=== PATIENT | female | born 1960 | race Two or more races ===

== ENCOUNTER 2021-12-03 07:20 | Emergency (ER) | payer OTHER, SELFPAY ==
[2021-12-03] VITALS (9 sets, daily range): BP systolic 121–187; BP diastolic 72–99; PULSE 50–55; RESP 16–20; TEMP 36.4–36.6; O2SAT 95–100; BMI 25.7
--- NOTE | ~2021-12-03 | CT_ITS ---
EXAMINATION: CT ABDOMEN AND PELVIS WITHOUT CONTRAST CLINICAL INFORMATION: Flank pain COMPARISON: None TECHNIQUE: Multidetector volumetric imaging was performed from the superior aspect of the liver through the pubic symphysis. Sagittal and coronal reformatted images were obtained on the technologist's workstation. This CT examination was performed using dose optimization techniques as appropriate, variously including the following: *Automated exposure control *Adjustment of mA and/or kV according to patient size (this includes techniques or standardized protocols for targeted exams where dose is matched to indication/reason for exam; i.e. extremities or head) *Use of iterative reconstruction technique DLP: 486 mGy-cm FINDINGS: LUNG BASES: Some change at the right medial lung base morphologically system with atelectasis. Small underlying nodularity cannot be excluded. LIVER, GALLBLADDER, AND BILIARY TREE: Small low-attenuation structure in the right lobe on image 13 may be incidental. Cannot be adequately characterize due to its small size. The gallbladder is unremarkable with no evidence of radiopaque gallstones, gallbladder wall thickening, or obvious pericholecystic inflammatory changes. PANCREAS: Unremarkable. SPLEEN: Unremarkable. ADRENAL GLANDS: The left adrenal gland is obscured. The right adrenal is within normal limits. KIDNEYS AND URETERS: The abnormal left kidney. Mixed attenuation is believed to surround the kidney with areas of increased attenuation. Findings consistent with hemorrhage on this noncontrast study. Lung the inferior aspect of this region fatty attenuation is seen. Therefore this could well represent hemorrhage within angiomyolipomas associated with the kidney. Hemorrhage of other etiology would need to be considered. BLADDER: Unremarkable. GASTROINTESTINAL TRACT: The bowel pattern is felt to be overall nonobstructing. There is some mass effect on the bowel by the enlarged left renal fossa abnormality but no obstruction. ABDOMINAL WALL: No significant hernia is appreciated. LYMPH NODES: No bulky adenopathy though the periaortic region associated with the left kidney is obscured by soft tissue stranding VASCULAR: Mild atherosclerotic changes. PELVIC VISCERA: There is a fatty lesion in the deep pelvis. Findings consistent with a teratoma. Peripheral calcification is associated with interspersed soft tissue within the fat. This lesion measures 6.5 x 6.9 x 5.9 cm OSSEOUS STRUCTURES: Lucent lesion of bone at L5 and L2. Etiology indeterminate.. This may be a hemangioma at L5 but that cannot be said of the lucency at L2. Given the findings in the renal fossae would recommend bone scan or MRI. CT/CT abdomen pelvis wo con IMPRESSION: This exam is abnormal. Recommend immediate surgical consultation. There is expansion of the left renal fossa by mixed attenuation. Findings consistent with hemorrhage. A large part of this probable hemorrhage surrounds the left kidney having mass effect on the kidney. Along the inferior aspect there is a more bulbous appearance with fatty attenuation and therefore etiology of hemorrhage could be from angiomyolipoma of the left kidney. Of course other lesion or abnormality causing the hemorrhage would be in the differential. 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 2 bony lesions in the lumbar spine. These may well represent benign etiology but given the findings in the renal fossa MR would be recommended This critical result was discussed with Symone Veronica at 9:31 AM on 12/03/2021 and it was ascertained that the content and urgency of the report was understood at the time of direct communication. Fleischner guidelines were followed.
--- NOTE | 2021-12-03 07:42 | ED_ITS ---
HPI - Abdominal Pain General Chief Complaint: Abdominal Pain Stated Complaint: ABD PAIN Time Seen by Provider: 12/03/21 07:33 Source: patient Mode of arrival: EMS Limitations: no limitations History of Present Illness MD elicited complaint: abdominal pain Pertinent past history: none Onset (ago): hour(s) (1) Pain Consistency: constant Location: LLQ and L flank Severity: severe Quality: stabbing Radiation: none Migration to: no migration Exacerbating factors: nothing Relieving factors: nothing Associated symptoms: nausea and vomiting Related Data Allergies Allergy/AdvReac Type Severity Reaction Status Date / Time No Known Allergies Allergy Verified 12/03/21 07:34 Review of Systems Review of Systems Constitutional : No Weight loss, No Fever, No Chills ENT/Mouth : No sore throat, No Rhinorrhea Eyes: No Swelling, No Redness Cardiovascular : No Chest Pain, No SOB, NoEdema Respiratory : No Cough, No Sputum, No Wheezing Gastrointestinal : Positive Nausea, Positive Vomiting, no Diarrhea, positive abdominal Pain, No Hematochezia, No Melena Genitourinary : No Dysuria, No Urinary Frequency, No Hematuria, No Urgency Musculoskeletal : No joint pain, No Myalgias, No Joint Swelling Skin : No Skin Lesions, No rash Neuro : No Weakness, No Numbness, No Dizziness, No Headache Psych : No Anxiety/Panic, No Depression Heme/Lymph: No Bruising, No Lymphadenopathy Endocrine : No Polyuria, No Polydipsia All other systems reviewed and are negative. [facility] Past Medical History Attestation statement: The following information was validated with the patient. Medical History (Updated 12/03/21 @ 09:44 by Awa Veronica DO) No pertinent past medical history Social History Social History (Updated 12/03/21 @ 07:46 by Awa Veronica DO) Patient Tobacco Use Status: Never used Tobacco Advance Directives: No Advance Directives Information Provided: No Physical Exam ED Vital Signs: Vital Signs - 24 hr 12/03/21 07:28 12/03/21 08:59 12/03/21 10:02 Temperature 97.7 F Pulse Rate 52 50 50 Respiratory Rate 18 18 16 Blood Pressure 187/99 H 121/81 148/83 H Pulse Oximetry 99 98 95 12/03/21 10:20 12/03/21 10:55 12/03/21 11:35 Temperature 97.6 F 97.8 F Pulse Rate 50 50 Respiratory Rate 20 18 Blood Pressure 143/87 H 132/72 Pulse Oximetry 97 12/03/21 11:50 12/03/21 13:40 Temperature 97.9 F 97.7 F Pulse Rate 50 50 Respiratory Rate 19 19 Blood Pressure 135/76 138/77 Pulse Oximetry 100 BMI result Body Mass Index 25.7 Appearance: Alert. Oriented X3. anxious in pain mild acute distress. Eyes: Pupils equal, round and reactive to light. ENT: Pharynx normal. Neck: Normal inspection. Neck supple. CVS: Normal heart rate and rhythm. Pulses normal. Respiratory: No respiratory distress. Breath sounds normal. Abdomen: Soft and mild LLQ ttp no rebound or guarding Skin: Skin warm and dry. pale skin color. Normal skin turgor. Extremities: No lower extremity edema. No calf ttp Neuro: Oriented X 3. No motor deficit. No sensory deficit. Course Course Course Narrative: call from radiology 930AM - big bleed L renal fossa per renal hemorrhage, inferior bulba and fatty attenuation ? 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 Menendez recommends transfusing now given size of bleed, watching HD instability and then involving IR ( our IR does not embolize here confirmed with Dr. Garcia from IR) will start calling for transfer as we do not have IR available for embolization [facility] transfer line 1005am for IR pending call back Dr. Schumacher from transfer line at [facility] 1057am aware - will discuss with IR if they can accommodate patient accepted to [facility] by Dr. Schumacher MDM - Abdominal Pain MDM Narrative Medical decision making narrative: 61 yo female with no sig PMH denies prior surgery here with c/o of abrupt onset LLQ and L flank pain 1 hour ago with nausea and vomiting - at this time will need labs, UA, CT scan for renal colic/diverticulitis. IVF and IV morphine/toradol for pain. Dispo per results and findings. Lab Data Result diagrams: 12/03/21 07:39 12/03/21 07:39 Labs: Lab Results 12/03/21 12/03/21 12/03/21 Range/Units 07:39 07:39 07:39 WBC 6.1 (4.8-10.8) X10*3/uL RBC 4.75 (4.20-5.50) X10*6/uL Hgb 12.6 (12.0-16.0) g/dl Hct 40.7 (37.0-47.0) % MCV 85.7 (80.0-98.0) fL MCH 26.5 L (27.0-33.0) pg MCHC 31.0 (31.0-35.0) g/dl RDW 13.0 (11.0-16.0) % Plt Count 242 (160-400) X10*3/uL MPV 9.2 L (9.4-12.3) fL Immature Gran % (Auto) 0.3 (0.0-0.4) % Neut % (Auto) 67.9 (45-73) % Lymph % (Auto) 23.5 (20-40) % [place] % (Auto) 3.8 (2-11) % Eos % (Auto) 3.4 (0-4) % Baso % (Auto) 1.1 (0-2) % Lymph # (Auto) 1.4 (1.2-4.9) X10*3/uL [place] # (Auto) 0.2 (0.1-1.2) X10*3/uL Eos # (Auto) 0.2 (0.0-0.4) X10*3/uL Baso # (Auto) 0.1 (0.0-0.2) X10*3/uL Abs Immat Gran (auto) 0.02 (0.00-0.03) X10*3/uL Absolute Neuts (auto) 4.1 (2.0-8.3) x10*3/uL Absolute Nucleated RBC 0.000 (0.0-0.012) X10*3/uL Nucleated RBC % (auto) 0.0 (0.0-0.2) /100WBC PT (9.9-13.0) SEC INR (0.9-1.1) APTT (24.1-38.0) SEC Sodium 139 (135-145) mmol/L Potassium 3.8 (3.3-5.1) mmol/L Chloride 105 (96-108) mmol/L Carbon Dioxide 21 L (22-29) mmol/L Anion Gap 17 (12-20) BUN 16 (9-16) mg/dL Creatinine 0.85 (0.5-1.4) mg/dL Estim Creat Clear Calc 67.5 Estimated GFR > 60 Random Glucose 146 H (60-115) mg/dL Lactic Acid (0.5-2.0) mmol/L Calcium 9.6 (8.4-10.2) mg/dL Magnesium 2.1 (1.6-2.6) mg/dL Total Bilirubin 1.2 H (0.0-1.0) mg/dL Direct Bilirubin 0.3 (0.0-0.5) mg/dL AST 38 H (5-31) U/L ALT 17 (0-31) U/L Alkaline Phosphatase 96 (39-117) U/L Total Protein 7.9 (6.5-8.0) g/dL Albumin 4.4 (3.5-5.0) g/dL Lipase 101 H (8-78) U/L Urine Color Urine Appearance Urine pH (5.0-8.0) Ur Specific [place] (1.005-1.025) Urine Protein (NEG-TRACE) MG/DL Urine Glucose (UA) (NEG) MG/DL Urine Ketones (NEG) MG/DL Urine Blood (NEG) Urine Nitrite (NEG) Ur Leukocyte Esterase (NEG) Urine RBC (0) /HPF Urine WBC (0-4) /HPF Ur Squamous Epith Cells /LPF Amorphous Sediment /LPF Urine Bacteria /LPF COVID-19 (BATOOL) Negative (Negative) COVID-19 Clin Com See Note Blood Type Antibody Screen Crossmatch 12/03/21 12/03/21 12/03/21 Range/Units 07:59 09:19 10:16 WBC (4.8-10.8) X10*3/uL RBC (4.20-5.50) X10*6/uL Hgb (12.0-16.0) g/dl Hct (37.0-47.0) % MCV (80.0-98.0) fL MCH (27.0-33.0) pg MCHC (31.0-35.0) g/dl RDW (11.0-16.0) % Plt Count (160-400) X10*3/uL MPV (9.4-12.3) fL Immature Gran % (Auto) (0.0-0.4) % Neut % (Auto) (45-73) % Lymph % (Auto) (20-40) % [place] % (Auto) (2-11) % Eos % (Auto) (0-4) % Baso % (Auto) (0-2) % Lymph # (Auto) (1.2-4.9) X10*3/uL [place] # (Auto) (0.1-1.2) X10*3/uL Eos # (Auto) (0.0-0.4) X10*3/uL Baso # (Auto) (0.0-0.2) X10*3/uL Abs Immat Gran (auto) (0.00-0.03) X10*3/uL Absolute Neuts (auto) (2.0-8.3) x10*3/uL Absolute Nucleated RBC (0.0-0.012) X10*3/uL Nucleated RBC % (auto) (0.0-0.2) /100WBC PT (9.9-13.0) SEC INR (0.9-1.1) APTT (24.1-38.0) SEC Sodium (135-145) mmol/L Potassium (3.3-5.1) mmol/L Chloride (96-108) mmol/L Carbon Dioxide (22-29) mmol/L Anion Gap (12-20) BUN (9-16) mg/dL Creatinine (0.5-1.4) mg/dL Estim Creat Clear Calc Estimated GFR Random Glucose (60-115) mg/dL Lactic Acid 1.1 (0.5-2.0) mmol/L Calcium (8.4-10.2) mg/dL Magnesium (1.6-2.6) mg/dL Total Bilirubin (0.0-1.0) mg/dL Direct Bilirubin (0.0-0.5) mg/dL AST (5-31) U/L ALT (0-31) U/L Alkaline Phosphatase (39-117) U/L Total Protein (6.5-8.0) g/dL Albumin (3.5-5.0) g/dL Lipase (8-78) U/L Urine Color YELLOW Urine Appearance HAZY Urine pH 6.5 (5.0-8.0) Ur Specific [place] 1.020 (1.005-1.025) Urine Protein 1+ H (NEG-TRACE) MG/DL Urine Glucose (UA) NEG (NEG) MG/DL Urine Ketones NEG (NEG) MG/DL Urine Blood 3+ H (NEG) Urine Nitrite NEG (NEG) Ur Leukocyte Esterase TRACE H (NEG) Urine RBC 15-29 H (0) /HPF Urine WBC 1-4 (0-4) /HPF Ur Squamous Epith Cells 1+ /LPF Amorphous Sediment 1+ /LPF Urine Bacteria 1+ /LPF COVID-19 (BATOOL) (Negative) COVID-19 Clin Com Blood Type B Positive Antibody Screen NEGATIVE Crossmatch See Detail 12/03/21 Range/Units 10:16 WBC (4.8-10.8) X10*3/uL RBC (4.20-5.50) X10*6/uL Hgb (12.0-16.0) g/dl Hct (37.0-47.0) % MCV (80.0-98.0) fL MCH (27.0-33.0) pg MCHC (31.0-35.0) g/dl RDW (11.0-16.0) % Plt Count (160-400) X10*3/uL MPV (9.4-12.3) fL Immature Gran % (Auto) (0.0-0.4) % Neut % (Auto) (45-73) % Lymph % (Auto) (20-40) % [place] % (Auto) (2-11) % Eos % (Auto) (0-4) % Baso % (Auto) (0-2) % Lymph # (Auto) (1.2-4.9) X10*3/uL [place] # (Auto) (0.1-1.2) X10*3/uL Eos # (Auto) (0.0-0.4) X10*3/uL Baso # (Auto) (0.0-0.2) X10*3/uL Abs Immat Gran (auto) (0.00-0.03) X10*3/uL Absolute Neuts (auto) (2.0-8.3) x10*3/uL Absolute Nucleated RBC (0.0-0.012) X10*3/uL Nucleated RBC % (auto) (0.0-0.2) /100WBC PT 10.9 (9.9-13.0) SEC INR 1.0 (0.9-1.1) APTT 31.3 (24.1-38.0) SEC Sodium (135-145) mmol/L Potassium (3.3-5.1) mmol/L Chloride (96-108) mmol/L Carbon Dioxide (22-29) mmol/L Anion Gap (12-20) BUN (9-16) mg/dL Creatinine (0.5-1.4) mg/dL Estim Creat Clear Calc Estimated GFR Random Glucose (60-115) mg/dL Lactic Acid (0.5-2.0) mmol/L Calcium (8.4-10.2) mg/dL Magnesium (1.6-2.6) mg/dL Total Bilirubin (0.0-1.0) mg/dL Direct Bilirubin (0.0-0.5) mg/dL AST (5-31) U/L ALT (0-31) U/L Alkaline Phosphatase (39-117) U/L Total Protein (6.5-8.0) g/dL Albumin (3.5-5.0) g/dL Lipase (8-78) U/L Urine Color Urine Appearance Urine pH (5.0-8.0) Ur Specific [place] (1.005-1.025) Urine Protein (NEG-TRACE) MG/DL Urine Glucose (UA) (NEG) MG/DL Urine Ketones (NEG) MG/DL Urine Blood (NEG) Urine Nitrite (NEG) Ur Leukocyte Esterase (NEG) Urine RBC (0) /HPF Urine WBC (0-4) /HPF Ur Squamous Epith Cells /LPF Amorphous Sediment /LPF Urine Bacteria /LPF COVID-19 (BATOOL) (Negative) COVID-19 Clin Com Blood Type Antibody Screen Crossmatch Critical Care Time Critical Care Time Critical Care Time: Yes Total Critical Care Time: 60 Attestation: IVF, transfusion, medical consult, transfer to medical center, repeat calls to urology, IV pain medications x 2, 2L of IVF I attest to this time spent taking care of the patient Discharge Plan Discharge Clinical Impression: Acute left flank pain, Retroperitoneal hemorrhage, Perinephric hematoma Patient Disposition: Xfer [facility] Transfer Details: [facility] Interventions: Acute Care Transfer Worksheet (ED) Last Done: 12/03/21 13:59 Discharge Date/Time: 12/03/21 14:00
[2021-12-03 07:53] LABS: MANUAL DIFF FLAG NO
[2021-12-03 07:55] LABS: Basophils Absolute Auto 0.1 X10*3/uL (0.0-0.2); Basophils Percent Auto 1.1 % (0-2); Eosinophils Absolute Auto 0.2 X10*3/uL (0.0-0.4); Eosinophils Percent Auto 3.4 % (0-4); Hematocrit 40.7 % (37.0-47.0); Hemoglobin 12.6 g/dl (12.0-16.0); Imm Gran Abs Auto 0.02 X10*3/uL (0.00-0.03); Imm Gran Pct Auto 0.3 % (0.0-0.4); Lymphocytes Absolute Auto 1.4 X10*3/uL (1.2-4.9); Lymphocytes Percent Auto 23.5 % (20-40); Mean Corpuscular Hemoglobin 26.5 pg (27.0-33.0); Mean Corpuscular Volume 85.7 fL (80.0-98.0); Mean Platelet Volume 9.2 fL (9.4-12.3); Monocytes Absolute Auto 0.2 X10*3/uL (0.1-1.2); Monocytes Percent Auto 3.8 % (2-11); Neutrophils Absolute Auto 4.1 x10*3/uL (2.0-8.3); Neutrophils Percent Auto 67.9 % (45-73); Platelet Count 242 X10*3/uL (160-400); Red Blood Count 4.75 X10*6/uL (4.20-5.50); White Blood Count 6.1 X10*3/uL (4.8-10.8)
[2021-12-03] MEDS: ondansetron HCL 4 MG/2 ML VIAL IVPUSH (07:56)
[2021-12-03] MEDS: Morphine Sulfate 4 MG/ML CARTRIDGE IVPUSH (07:56)
[2021-12-03] MEDS: 0.9 % Sodium Chloride 1,000 ML 999 ML IVCONT (07:57)
[2021-12-03] MEDS: Ketorolac Tromethamine 15 MG/ML VIAL 30 MG IVPUSH (07:57)
[2021-12-03 08:07] LABS: Appearance Urine HAZY; Color Urine YELLOW; Glucose Urine UA NEG (NEG); Leukocyte Esterase Urine TRACE (NEG); Nitrite Urine NEG (NEG); PH 6.5 (5.0-8.0); UACC Culture Trigger NO; Urine Blood 3+ (NEG); Urine Ketones NEG (NEG); Urine Protein 1+ MG/DL (NEG-TRACE)
[2021-12-03 08:09] LABS: COVID-19 Test Negative (Negative); IDNOW Serial# 55D5AD1C
[2021-12-03 08:12] LABS: Alanine Aminotransferase 17 U/L (0-31); Albumin Level 4.4 g/dL (3.5-5.0); Alkaline Phosphatase 96 U/L (39-117); Anion Gap 17 (12-20); Aspartate Amino Transferase 38 U/L (5-31); Bilirubin Direct 0.3 mg/dL (0.0-0.5); Bilirubin Total 1.2 mg/dL (0.0-1.0); Blood Urea Nitrogen 16 mg/dL (9-16); Calcium 9.6 mg/dL (8.4-10.2); Carbon Dioxide 21 mmol/L (22-29); Chloride 105 mmol/L (96-108); Creatinine Clr Calc Pharmacy 67.5; Estimated Glomerular Filt Rate > 60; Glucose Random 146 mg/dL (60-115); Lipase 101 U/L (8-78); Magnesium 2.1 mg/dL (1.6-2.6); Potassium 3.8 mmol/L (3.3-5.1); Sodium 139 mmol/L (135-145); Total Protein 7.9 g/dL (6.5-8.0)
[2021-12-03 08:18] LABS: Amorphous Sediment Urine 1+ /LPF; Bacteria Urine 1+ /LPF; Squamous Epithelial Cell Urine 1+ /LPF
[2021-12-03] MEDS: 0.9 % Sodium Chloride 1,000 ML 999 ML IV (09:36)
[2021-12-03 09:42] LABS: Lactic Acid 1.1 mmol/L (0.5-2.0)
[2021-12-03 10:32] LABS: Prothrombin Time 10.9 SEC (9.9-13.0)
[2021-12-03 10:35] LABS: Partial Thromboplastin Time 31.3 SEC (24.1-38.0)
[2021-12-03] MEDS: HYDROmorphone HCl 0.5 MG/0.5 ML SYRINGE IVPUSH (12:57)
--- NOTE | 2021-12-03 13:46 | PC.NURSE ---
Pt alert and oriented x4, calm and cooperative/ Pt complained of pain intermittently, pt received pain meds and stated a relief with pain meds given. Report given to [facility]. IV intact. Vitals stable. Pt remains NPO since arrival at 0730. Pt received 1 unit PRBC starting infusing at 1135, 15 minute vitals charted at 1150am, blood transfusion completed at 1340. Vitals charted and WNL. Pt tolerated blood transfusion well without reactions noted, denies itching, fevers, or SOB. Pt denies chest pain. Pt transferred out now.
--- NOTE | 2021-12-03 14:00 | PC.NURSE ---
Report given to MJ Adam at [facility] Urology department at [phone].
== END 2021-12-03 14:00 | disposition short-term general hospital (02) ==
PROVIDERS: Emergency Provider Emergency Medicine
DX: N15.1 Renal and perinephric abscess (principal); R58 Hemorrhage, not elsewhere classified; R10.32 Left lower quadrant pain; R11.2 Nausea with vomiting, unspecified; Z20.822 Contact with and (suspected) exposure to COVID-19
CPT/HCPCS: 36415; 36430; 74176; 80048; 80076; 81001; 83605; 83690; 83735; 85025; 85610; 85730; 86850; 86900; 86901; 86923; 87040; 87635; 96360; 96361; 96374; 96375; 99285; 99291; J1170; J1885; J2270; J2405; P9016

== ENCOUNTER 2022-05-02 07:37 | Emergency (ER) | payer OTHER, SELFPAY ==
--- NOTE | ~2022-05-02 | XR_ITS ---
EXAMINATION: XR ANKLE, RIGHT CLINICAL INFORMATION: Fall, swelling COMPARISON: None TECHNIQUE: AP, lateral, and mortise views of the right ankle. FINDINGS: No fracture or dislocation. No widening of the ankle mortise. Talar dome intact. Mild lateral soft tissue swelling. XR/XR ankle RT 2V IMPRESSION: Mild lateral soft tissue swelling but no acute osseous abnormality seen
[2022-05-02 07:42] VITALS: BP 160/82; PULSE 60; RESP 16; TEMP 36.6; O2SAT 100; BMI 25.3
--- NOTE | 2022-05-02 09:13 | ED_ITS ---
HPI - Extremity Injury (Lower) General Chief Complaint: Extremity Injury, Lower Stated Complaint: fell down stairs at home Time Seen by Provider: 05/02/22 09:02 Source: patient Mode of arrival: ambulatory Limitations: no limitations History of Present Illness HPI Narrative: Patient presents emergency department for evaluation of right ankle pain. She states earlier this morning she was walking down the stairs in the dark and she missed 1 of the steps causing her to twist her foot in words. Afterwards she developed pain to the outside of her right ankle with swelling and some bruising. She walked for approximately 10 minutes to the bus stop and her pain was increasing therefore she presented to the emergency department. Denies any numbness or tingling or cold sensation to the foot. Denies any past injury to this ankle or foot. Denies any head strike or loss of consciousness with this fall Related Data Allergies Allergy/AdvReac Type Severity Reaction Status Date / Time No Known Allergies Allergy Verified 12/03/21 07:34 Review of Systems Review of Systems: Musculoskeletal: Positive ankle pain as noted in HPI Yes all other systems are reviewed and are negative [facility] Past Medical History Attestation statement: The following information was validated with the patient. Source: old records reviewed Medical History No pertinent past medical history Social History Social History Patient Tobacco Use Status: Never used Tobacco Advance Directives: No Advance Directives Information Provided: No Physical Exam Vital Signs: Vital Signs: Last Vital Signs Temp 98 F 05/02/22 07:42 Pulse 60 05/02/22 07:42 Resp 16 05/02/22 07:42 BP 160/82 H 05/02/22 07:42 Pulse Ox 100 05/02/22 07:42 O2 Del Method 05/02/22 07:42 BMI result Body Mass Index 25.3 Appearance: Alert.?Oriented to person, place and time. No acute distress.?Normal affect. Eyes: Pupils equal, round and reactive to light.? ENT: Pharynx normal.?? Neck: Normal inspection.? Neck supple.?? CVS: Heart sounds normal. Normal heart rate and rhythm.? Pulses normal.?? Respiratory: No respiratory distress.? Lung sounds clear to auscultation bilaterally?? Abdomen: Soft and non-tender. Normoactive bowel sounds. Skin: Skin warm and dry.? Normal skin color.? Extremities: No lower extremity edema.? No calf ttp. Right lateral malleolus and lateral midfoot with swelling, bruising, tenderness upon palpation. 2+ DP/PT pulse bilaterally. Decreased AROM to the right ankle but able to move through all ranges. Neuro: Moves all extremities spontaneously. Sensation intact bilaterally. No focal neuro deficits. Ambulates with slow antalgic gait. Course Course Course Narrative: Patient is a 61-year-old female who presents emergency department for evaluation of right ankle pain after mechanical fall without head strike or loss of consciousness. She is well-appearing, speaking clear full sentences. Was ambulatory after the injury, pain has become increasingly worse with weight- bearing and has localized swelling. Extremities neurovascularly intact distally. XR reveals no acute fracture dislocation there is however mild localized soft tissue swelling consistent with ankle sprain. Discussed these findings with patient. Patient to receive air cast, reviewed worsens and symptoms to return back to the emergency department for, acetaminophen/ibuprofen as needed for pain, rest, ice, compression, elevation. Patient verbalized und erstanding. She was discharged in stable condition. MDM - Extremity Injury (Lower) Medical Records Attestation: I reviewed the patient's medical records. Imaging Data XR ankle: Radiologist's impression: XR/XR ankle RT 2V IMPRESSION: Mild lateral soft tissue swelling but no acute osseous abnormality seen Discharge Plan Discharge Clinical Impression: Ankle sprain and strain Patient Disposition: Home, Self-Care Instructions: Ankle Sprain (ED), Crutch Instructions (ED), R.I.C.E. Treatment (ED) Additional Instructions: As we discussed, you did not have a fracture or dislocation. Your pain is swelling is due to a sprain injury of the ankle. You can take ibuprofen 200 mg, 3 tablets (600mg) every 6-8 hours as needed for pain, in addition to Tylenol 500 mg, 2 tablets (1,000mg) every 4-6 hours as needed for pain, but not to exceed 3 doses daily (3,000mg).? Please be sure to rest, apply ice for 10-15 minutes 3-4 times daily, use Manjinder bandage for compression, Aircast as provided for stability of the ankle, and elevate your leg above the level of your chest when possible. Please contact your primary care provider to arrange for a follow-up visit. Return to the emergency department any new or worsening symptoms or concerns Referrals: Physician,Yanni J [Primary Care Provider] - Stand Alone Forms: Work/School Release
== END 2022-05-02 10:27 | disposition home or self-care (01) ==
PROVIDERS: Emergency Provider Emergency Medicine
DX: S93.401A Sprain of unspecified ligament of right ankle, initial encounter (principal); S96.911A Strain of unspecified muscle and tendon at ankle and foot level, right foot, initial encounter; W10.8XXA Fall (on) (from) other stairs and steps, initial encounter; Y93.89 Activity, other specified; Y92.018 Other place in single-family (private) house as the place of occurrence of the external cause; Y99.9 Unspecified external cause status
CPT/HCPCS: 73600; 99283

== ENCOUNTER 2024-04-24 15:57 | Emergency (ER) | payer OTHER, SELFPAY ==
--- NOTE | ~2024-04-24 | CT_ITS ---
EXAM: CT HEAD WITHOUT CONTRAST CT CERVICAL SPINE INDICATION: head strike on right TECHNIQUE: A noncontrast CT scan was performed from the skull base to the vertex. A noncontrast CT scan of the cervical spine was performed from the base of the skull through T1 at 2.5 mm and 0.625 mm collimation. Coronal and sagittal reformats were obtained at the acquisition workstation. This CT examination was performed using dose optimization techniques as appropriate, variously including the following: * Automated exposure control * Adjustment of mA and/or kV according to patient size (this includes techniques or standardized protocols for targeted exams where dose is matched to indication/reason for exam; i.e. extremities or head) * Use of iterative reconstruction technique Dose length product is 918 mGy-cm. COMPARISON: None FINDINGS: Head: There is no evidence of acute intracranial hemorrhage or edematous large vessel territorial infarction. No abnormal mass effect or midline shift is seen. Charles to white matter differentiation is well preserved. No abnormal extra-axial fluid collections are identified. The ventricles are normal in size. No abnormal attenuation in the brain parenchyma. No acute calvarial fracture.. Paranasal sinuses and mastoid air cells are well-aerated. Cervical Spine: The atlantooccipital and atlantoaxial articulations remain well aligned. Straightening of the normal cervical lordosis. Otherwise, there is anatomic alignment of the vertebral bodies and posterior elements. No evidence of acute fracture or subluxation. Vertebral body heights are maintained. Partial osseous fusion at C2-3. There is chronic osseous fusion of the posterior elements of C2-3. 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 The central bony canal is maintained. No prevertebral soft tissue swelling. Left thyroid lobe small calcification. The visualized lung apices are clear. CT/CT cervical spine wo IV con IMPRESSION: No CT evidence of acute intracranial hemorrhage or edematous territorial infarction. No CT evidence of acute cervical spine fracture. Chronic cervical spine findings as detailed above. Electronically signed by: Nilesh Latham MD 04/24/2024 05:45 PM EDT
[2024-04-24 16:08] VITALS: BP 146/96; PULSE 55; RESP 19; TEMP 36.6; O2SAT 98; BMI 23.4
--- NOTE | 2024-04-24 16:21 | ECG_ITS ---
Test Reason : dizziness Blood Pressure : / mmHG Vent. Rate : 053 BPM Atrial Rate : 053 BPM P-R Int : 160 ms QRS Dur : 086 ms QT Int : 444 ms P-R-T Axes : 040 016 038 degrees QTc Int : 416 ms Sinus bradycardia Otherwise normal ECG No previous ECGs available Referred By: Haley Alicea Electronically Signed By:ARTURO BROWN
[2024-04-24 16:51] LABS: MANUAL DIFF FLAG NO
[2024-04-24 17:04] LABS: Alanine Aminotransferase 22 U/L (0-31); Albumin Level 4.6 g/dL (3.5-5.0); Alkaline Phosphatase 105 U/L (39-117); Anion Gap 12 (12-20); Aspartate Amino Transferase 30 U/L (5-31); Bilirubin Total 0.9 mg/dL (0.0-1.0); Blood Urea Nitrogen 14 mg/dL (9-16); Calcium 10.1 mg/dL (8.4-10.2); Carbon Dioxide 29 mmol/L (22-29); Chloride 105 mmol/L (96-108); Creatinine Clr Calc Pharmacy 46.1; Estimated Glomerular Filt Rate 53; Glucose Random 100 mg/dL (60-115); Magnesium 2.3 mg/dL (1.6-2.6); Potassium 4.2 mmol/L (3.3-5.1); Sodium 142 mmol/L (135-145); Total Protein 7.6 g/dL (6.5-8.0)
[2024-04-24 17:09] LABS: Basophils Absolute Auto 0.1 X10*3/uL (0.0-0.2); Basophils Percent Auto 2.2 % (0-2); Eosinophils Absolute Auto 0.3 X10*3/uL (0.0-0.4); Eosinophils Percent Auto 6.3 % (0-4); Hematocrit 38.9 % (37.0-47.0); Hemoglobin 12.6 g/dl (12.0-16.0); Lymphocytes Absolute Auto 1.3 X10*3/uL (1.2-4.9); Lymphocytes Percent Auto 31.5 % (20-40); Mean Corpuscular HGB Conc 32.4 g/dl (31.0-35.0); Mean Corpuscular Hemoglobin 27.5 pg (27.0-33.0); Mean Corpuscular Volume 84.7 fL (80.0-98.0); Mean Platelet Volume 9.5 fL (9.4-12.3); Monocytes Absolute Auto 0.3 X10*3/uL (0.1-1.2); Monocytes Percent Auto 7.3 % (2-11); Neutrophils Absolute Auto 2.2 x10*3/uL (2.0-8.3); Neutrophils Percent Auto 52.7 % (45-73); Platelet Count 188 X10*3/uL (160-400); Red Blood Count 4.59 X10*6/uL (4.20-5.50); Red Cell Distribution Width 13.1 % (11.0-16.0); White Blood Count 4.1 X10*3/uL (4.8-10.8)
[2024-04-24 17:11] LABS: Troponin-I High Sensitivity < 2.7 ng/L (<3.5-17.0)
--- NOTE | 2024-04-24 17:21 | ED_ITS ---
HPI - Head Injury General Chief complaint: Head Injury Stated complaint: WC-head wound Time Seen by Provider: 04/24/24 18:47 Source: patient and RN notes reviewed Mode of arrival: ambulatory Limitations: no limitations History of Present Illness ED Provider: Wandy Dominguez PA-C [facility] Narrative: This is a 63-year-old female who presents emergency department with complaints of head injury which occurred yesterday at work. Patient states that she was using a [employer] when the handle suddenly fell and struck her on her head She states that this weighs approximately 10-20 lb. She states after the point of impact she felt dizzy. She denies loss of consciousness. She states that this occurred at 9:00 a.m. yesterday morning. She states that yesterday she had a headache that was alleviated after taking 1 dose of Tylenol. She states that today she has been feeling well, reports slight pain to the area of impact, she otherwise denies any recurrence of dizziness since yesterday, severe headache, blurred vision, changes in vision, chest pain, shortness breath, abdominal pain, nausea, vomiting or diarrhea. She is not on anticoagulants. She denies any other complaints or concerns at this time. Complaint: head injury and head pain Onset (ago): day(s) Place: work Loss of Consciousness: no Location of injury: occipital Severity: moderate Radiation: none Other Injuries: none Associated symptoms: denies other symptoms Related Data Allergies Allergy/AdvReac Type Severity Reaction Status Date / Time No Known Allergies Allergy Verified 04/24/24 16:12 Review of Systems 2 Review of Systems: Yes all other systems are reviewed and are negative Constitutional: Constitutional: Reports as per [facility] Past Medical History Attestation statement: The following information was validated with the patient. Medical History No pertinent past medical history Social History Social History Patient Tobacco Use Status: Never used Tobacco Advance Directives: No Advance Directives Information Provided: No Physical Exam 2 Vital Signs: Vital Signs: Last Vital Signs Temp 98 F 04/24/24 16:08 Pulse 55 04/24/24 16:08 Resp 19 04/24/24 16:08 BP 146/96 H 04/24/24 16:08 Pulse Ox 98 04/24/24 16:08 O2 Del Method Room Air 04/24/24 16:08 BMI result Body Mass Index 23.4 Const: General: cooperative, comfortable and no acute distress O rientation/consciousness: patient oriented x3 Limitations: no limitations HEENT: Head: Yes normal to inspection, Yes normocephalic and Yes atraumatic Ears: hearing grossly normal bilaterally and TM's normal bilaterally (No hemotympanum) General nose exam: Normal external nose present Face and sinus: Yes normal facial exam Mouth: Normal oral and palatal mucosa present, oropharynx normal and moist mucous membranes Throat: Yes posterior oropharynx normal Eyes: General: appearance normal, both eyes and all related structures E yelids: Yes eyelids normal Conjunctivae: conjunctivae normal Sclerae: s clerae normal Pupils: Equal, round and reactive pupils present EOM: EOMs intact bilaterally Neck: Other: No midline C-spine tenderness. No tenderness to palpation along the cervical paraspinous muscles. Full ROM of the neck. Neck: Yes normal visual inspection, Yes full ROM and Yes no lymphadenopathy Lymphatic: no lymphadenopathy noted Chest: Chest palpation & inspection: normal inspection of the chest Resp: Effort & Inspection: normal respiratory effort and able to speak in complete sentences Auscultation: clear to auscultation bilaterally, no crackles, no rales, no rhonchi and no wheezes Cardio: Rate: regular rate Rhythm: regular rhythm Heart sounds: S1 normal heart sound present and S2 normal heart sound present GI: Inspection: Yes normal to inspection Skin: General skin exam: no rashes or lesions noted Trauma: no lacerations or abrasions Wounds: no wounds Neuro: General: patient oriented x3 and moves all extremities Cranial nerves: Yes Equal, round and reactive pupils present Extrem: General: Yes normal to inspection Right upper extremity: normal to inspection Left upper extremity: normal to inspection Right lower extremity: normal to inspection Left lower extremity: normal to inspection Course Course Course Narrative: This is a Rapid Medical Examination (RME) performed by Boubacar Alicea PA-C in triage. Full HPI, ROS, assessment and treatment plan per primary provider in the Main ED. 63 yo female here for eval of head strike occurring yesterday at work. reports hitting the right side of her head on a metal pole. no loc. saw stars. reports TELLEZ since, relieved with apap. endorses continued dizziness and tenderness to the area since head strke. + neuro intact. cerebellum intact. ambulating w/ steady gait. no palpable skull fx or hematoma. perrla. Plan: labs, ekg, imaging Medical Decision Making Medical Decision Making [facility] Narrative: This is a 63-year-old female who presents emergency department after being struck on the right side of her head at work yesterday with a metal pole. There is no LOC. She is not on anticoagulants. On arrival, vital signs within normal limits. She is speaking in full sentences under no acute distress. She is neurologically intact. She has tenderness palpation along the right occiput with no open wounds or lacerations. Differential diagnoses include hematoma, closed head injury, ICH, SDH. CT head and neck was obtained revealing no intracranial process. Labs were also ordered prior to my assessment, she has slight leukopenia, otherwise unremarkable, chemistry within normal limits. Troponin less than 2.7, she has no dizziness or chest pain. Repeat troponin not indicated. EKG revealing sinus bradycardic at 53 beats per minute, no ST elevation or depression. Discussed overall workup with patient, given normal physical examination and, she can be safely discharged home. Given strict return precautions. She will follow-up with her PCP. Patient stable for discharge Differential Diagnosis Differential Diagnoses: The differential diagnosis associated with the presentation includes See above Admission/Observation Consideration of admission/observation: Escalation of care including admission/observation considered Lab Data [facility] Lab Attestation statement: I reviewed the patient's lab results. See [facility] 04/24/24 16:47 04/24/24 16:47 Labs: Lab Results 04/24/24 Range/Units 16:47 WBC 4.1 L (4.8-10.8) X10*3/uL RBC 4.59 (4.20-5.50) X10*6/uL Hgb 12.6 (12.0-16.0) g/dl Hct 38.9 (37.0-47.0) % MCV 84.7 (80.0-98.0) fL MCH 27.5 (27.0-33.0) pg MCHC 32.4 (31.0-35.0) g/dl RDW 13.1 (11.0-16.0) % Plt Count 188 (160-400) X10*3/uL MPV 9.5 (9.4-12.3) fL Immature Gran % (Auto) 0.0 (0.0-0.4) % Neut % (Auto) 52.7 (45-73) % Lymph % (Auto) 31.5 (20-40) % Stanley % (Auto) 7.3 (2-11) % Eos % (Auto) 6.3 H (0-4) % Baso % (Auto) 2.2 H (0-2) % Lymph # (Auto) 1.3 (1.2-4.9) X10*3/uL Stanley # (Auto) 0.3 (0.1-1.2) X10*3/uL Eos # (Auto) 0.3 (0.0-0.4) X10*3/uL Baso # (Auto) 0.1 (0.0-0.2) X10*3/uL Abs Immat Gran (auto) 0.00 (0.00-0.03) X10*3/uL Absolute Neuts (auto) 2.2 (2.0-8.3) x10*3/uL Absolute Nucleated RBC 0.000 (0.0-0.012) X10*3/uL Nucleated RBC % (auto) 0.0 (0.0-0.2) /100WBC Sodium 142 (135-145) mmol/L Potassium 4.2 (3.3-5.1) mmol/L Chloride 105 (96-108) mmol/L Carbon Dioxide 29 (22-29) mmol/L Anion Gap 12 (12-20) BUN 14 (9-16) mg/dL Creatinine 1.06 (0.5-1.4) mg/dL Estim Creat Clear Calc 46.1 Estimated GFR 53 Random Glucose 100 (60-115) mg/dL Calcium 10.1 (8.4-10.2) mg/dL Magnesium 2.3 (1.6-2.6) mg/dL Total Bilirubin 0.9 (0.0-1.0) mg/dL AST 30 (5-31) U/L ALT 22 (0-31) U/L Alkaline Phosphatase 105 (39-117) U/L Troponin I High Sens < 2.7 (<3.5-17.0) ng/L Total Protein 7.6 (6.5-8.0) g/dL Albumin 4.6 (3.5-5.0) g/dL Independent Interpretation I performed an independent interpretation of an: EKG Interpretation: Sinus bradycardia at 53 beats per minute, AZ interval 160, QT/QTC 444/416. No ST elevation or depression Radiology Impression Discussion of test interpretation with radiology: I have reviewed the radiologist's reading. Radiologist Impression: CT/CT head/brain wo IV con IMPRESSION: No CT evidence of acute intracranial hemorrhage or edematous territorial infarction. No CT evidence of acute cervical spine fracture. Chronic cervical spine findings as detailed above. Electronically signed by: Nilesh Latham MD 04/24/2024 05:45 PM EDT RP Dictated By: Nilesh Latham MD Discharge Plan Discharge Clinical Impression: Closed head injury Patient Disposition: Home, Self-Care Instructions: Head Injury (ED) Additional Instructions: You were seen in the emergency department after injuring your head at work yesterday. Your CT scan of your head and neck do not show any new injury. Your CT scan of your neck does show arthritis. Otherwise your workup is reassuring. Please rest, ice, and take Tylenol as needed for pain and symptoms. If any new or worsening symptoms occur including but not limited to chest pain, shortness for breath, severe headache, dizziness, changes in vision, vomiting, please seek emergent care. Print Language: Other
[2024-04-24 19:39] VITALS: BP 146/96; PULSE 55; RESP 19; TEMP 36.6; O2SAT 98
== END 2024-04-24 19:40 | disposition home or self-care (01) ==
PROVIDERS: Physician Assistant Medical; Emergency Provider Emergency Medicine
DX: S09.90XA Unspecified injury of head, initial encounter (principal); W22.8XXA Striking against or struck by other objects, initial encounter; Y93.89 Activity, other specified; Y92.59 Other trade areas as the place of occurrence of the external cause; Y99.0 Civilian activity done for income or pay
CPT/HCPCS: 36415; 70450; 72125; 80053; 83735; 84484; 85025; 93005; 99283; 99284

== ENCOUNTER → 2024-04-24 16:21 | Outpatient (BNV) | payer OTHER, SELFPAY | PROVIDERS: Emergency Provider Emergency Medicine; Visit Provider Internal Medicine | DX: R00.1 Bradycardia, unspecified (principal) | CPT/HCPCS: 93010 ==